=== PATIENT | female | born 1950 | race Caucasian/White ===

== ENCOUNTER 2022-12-24 18:30 | Emergency (ER) | payer OTHER ==
[2022-12-24] MEDS ORDERED: MECLIZINE HCL 25 MG TABLET (FP) PO ONE (19:31)
[2022-12-24] MEDS ORDERED: MECLIZINE HCL 25 MG TABLET (FP) ONE (19:38)
[2022-12-24 21:52] VITALS: BP 150/76; PULSE 68; RESP 18; TEMP 97.9; BMI 25.1
== END 2022-12-24 22:01 | disposition home or self-care (01) ==
LOC: FER 18:30
DX: R42 Dizziness and giddiness (principal); H81.399 Other peripheral vertigo, unspecified ear
CPT/HCPCS: 70450-TC; 93005; 99284-25